=== PATIENT | female | born 1960 | race Caucasian/White ===

== ENCOUNTER 2018-03-29 11:36 | Outpatient (CLI) | payer OTHER, BC ==
[~2018-03-29 11:36] MED LIST: CRESTOR; DULO60CA41 PO; LAMICTAL; LISINOPRIL; PREVACID; XANAX; ZOLOFT; ZOLP10TA2; [UNRECOGNIZED DRUG - OTHER]
[2018-03-29] MEDS ORDERED: BARIUM SULFATE 135 ML SUSP.RECON (E-Z-HD) PO ONE (11:49)
== END 2018-03-29 20:36 | disposition home or self-care (01) ==
LOC: SRD 11:36
PROVIDERS: ATTEND Otolaryngology Plastic Surgery within the Head & Neck
DX: R13.10 Dysphagia, unspecified (principal); R49.0 Dysphonia; I10 Essential (primary) hypertension
CPT/HCPCS: 74220-TC